=== PATIENT | female | born 1955 | race Caucasian/White ===

== ENCOUNTER 2017-08-08 19:25 | Emergency (ER) | payer BC ==
[2017-08-08 19:46] VITALS: BP 137/74
--- NOTE | 2017-08-08 20:01 | UC ---
Rolly Herbert Gabriel, scribed for Zeny Simpson MD on 08/08/17 at 1959 . Throat Pain/Nasal Gerardo HPI - HPI Summary HPI Summary: This patient is a 62 year old F presenting to [facility] [place] with a chief complaint of possible sinus infection since 2 months ago. The patient rates the pain 7/10 in severity. Pressure in max sinus R>L. Patient reports nasal congestion (unable to blow nose), eye pain, post nasal drip, sinus pressure, chills (2 weeks), nausea, body aches, and weakness. Patient denies dental pain and vomiting. Pt states feel fatgiue. 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 + sinus infection 1 year ago Medications reviewed during this visit. - History of Current Complaint Chief Complaint: UCRespiratory Stated Complaint: SINUS COMPLAINT Time Seen by Provider: 08/08/17 19:47 Hx Obtained From: Patient Hx Last Menstrual Period: post menopausal Onset/Duration: Lasting Weeks - 8, Still Present Severity: Moderate Pain Intensity: 7 Pain Scale Used: 0-10 Numeric Associated Signs & Symptoms: Positive: Negative - dental pain and vomiting, Other - nasal congestion (unable to blow nose), eye pain, post nasal drip, sinus pressure, chills (2 weeks), nausea, body aches, and weakness. 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, wisdom teeth - Family History Known Family History: Positive: Hypertension - Social History Occupation: Employed Part-time Alcohol Use: Occasionally Alcohol Amount: every 2-3 weeks Substance Use Type: None Smoking Status (MU): Never Smoked Tobacco - Immunization History Most Recent Influenza Vaccination: 2014 Most Recent Tetanus Shot: 2015 Most Recent Pneumonia Vaccination: never Review of Systems Constitutional: Chills Eyes: Other - eye pain ENT: Sinus Congestion, Sinus Pain/Tenderness - pressure, Other - post nasal drip Gastrointestinal: Nausea Neurological: Weakness All Other Systems Reviewed And Are Negative: Yes Physical Exam Triage Information Reviewed: Yes Appearance: Well-Appearing, No Pain Distress, Well-Nourished Vital Signs: Initial Vital Signs Temp 98.8 F 08/08/17 19:40 Pulse 74 08/08/17 19:40 Resp 18 08/08/17 19:40 BP 137/74 08/08/17 19:40 Pulse Ox 99 08/08/17 19:40 Vital Signs Reviewed: Yes Eye Exam: Normal Eyes: Positive: Conjunctiva Clear ENT: Positive: Pharynx normal, Nasal congestion, Sinus tenderness - max R>L, Other - mild PND no erythema, no exudate Dental Exam: Normal Neck exam: Normal Neck: Positive: Supple, Nontender, No Lymphadenopathy Respiratory Exam: Normal Respiratory: Positive: Chest non-tender, Lungs clear, Normal breath sounds, No respiratory distress, No accessory muscle use Cardiovascular Exam: Normal Cardiovascular: Positive: RRR, No Murmur, Pulses Normal Abdominal Exam: Normal Abdomen Description: Positive: Nontender, No Organomegaly, Soft Bowel Sounds: Positive: Present Musculoskeletal Exam: Normal Musculoskeletal: Positive: Strength Intact Neurological Exam: Normal Neurological: Positive: Alert Psychological Exam: Normal Skin Exam: Normal Throat Pain/Nasal Course/Dx - Course Assessment/Plan: This patient is a 62 year old F presenting to [facility] with a chief complaint of possible sinus infection since 2 months ago. Pt with nasal congestion and bogginess + ttp max sinus. Pt with neg flu. will rx abx. Rx diflucan for yeast infection associated with abx - Differential Dx/Diagnosis Provider Diagnoses: sinusitis Discharge - Discharge Plan Condition: Stable Disposition: HOME Prescriptions: Amoxicillin/Clavulanate TAB* [Augmentin TAB 875*] 875 mg PO BID #14 tab Fluconazole [Diflucan 150 MG (NF)] 150 mg PO ONCE PRN #1 tab PRN Reason: yeast infection Patient Education Materials: Sinusitis (ED) Referrals: No Primary Care Phys,NOPCP [Primary Care Provider] - Additional Instructions: - Stay well hydrated. Drink plenty of non-alcoholic, non-caffinated beverages. - okay to take over the counter decongestant - After you have been on antibiotics for 2 days - change your toothbrush and your pillowcase. These infections are spread by secretions - do NOT share eating or drinking utensils - clean items you share with other people such as cell phones, computer mouse, TV remote, computer tablets, etc - Alternate ibuprofen (Advil, Motrin) 600mg and Tylenol every 3 hours for pain or fever. Take with food. Do NOT take for more than 4-5 days. - you have been given a prescription for a yeast infection - okay to take as needed following antibiotics The documentation as recorded by the Rolly thurston Gabriel accurately reflects the service I personally performed and the decisions made by me, Zeny Simpson MD.
[2017-08-08] MEDS ORDERED: Amoxicillin/Clavulanate TAB* 875 MG PO ONE (20:43)
== END 2017-08-08 20:58 | disposition home or self-care (01) ==
LOC: UCEAST 19:25
DX: J32.9 Chronic sinusitis, unspecified (principal)
CPT/HCPCS: 87502; 99212; A9270-GY; G0463

== ENCOUNTER 2018-01-18 20:30 | Emergency (ER) | payer BC ==
[2018-01-18 20:43] VITALS: BP 148/82
--- NOTE | 2018-01-18 20:54 | UC ---
Complaint Female HPI - HPI Summary HPI Summary: 62 year old female with UTI concerns. Increased freq of urination for 3 days. no n/,v/d . no fever. - History Of Current Complaint Chief Complaint: UCGU Stated Complaint: UTI Time Seen by Provider: 01/18/18 20:52 Hx Obtained From: Patient Hx Last Menstrual Period: post menopausal Onset/Duration: Gradual Onset Timing: Constant Pain Intensity: 0 Related Hx: Similar Episode/Dx as: - Allergies/Home Medications Allergies/Adverse Reactions: Allergies Allergy/AdvReac Type Severity Reaction Status Date / Time aspirin Allergy GI Upset Verified 01/18/18 20:43 metronidazole [From Flagyl] Allergy Hives Verified 01/18/18 20:43 HAYFEVER Allergy Severe CONGESTION, Uncoded 08/08/17 19:38 SNEEZING PMH/Surg Hx/FS Hx/Imm Hx Previously Healthy: Yes - Surgical History Surgical History: Yes Surgery Procedure, Year, and Place: CHOLECYSTECTOMY, PITUITARY TUMOR REMOVED, THYROID SURGERY, D&C, ERCP, 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, wisdom teeth - Family History Known Family History: Positive: Hypertension - Social History Occupation: Employed Full-time Alcohol Use: Occasionally Alcohol Amount: every 2-3 weeks Substance Use Type: None Smoking Status (MU): Never Smoked Tobacco - Immunization History Most Recent Influenza Vaccination: 2014 Most Recent Tetanus Shot: 2014 Most Recent Pneumonia Vaccination: never Review of Systems Genitourinary: Frequency Is Patient Immunocompromised?: No All Other Systems Reviewed And Are Negative: Yes Physical Exam Triage Information Reviewed: Yes Appearance: Well-Appearing, No Pain Distress, Well-Nourished Vital Signs: Initial Vital Signs Temp 97.2 F 01/18/18 20:40 Pulse 90 01/18/18 20:40 Resp 18 01/18/18 20:40 BP 148/82 01/18/18 20:40 Pulse Ox 100 01/18/18 20:40 Eye Exam: Normal ENT Exam: Normal Dental Exam: Normal Neck exam: Normal Neck: Positive: 1 Respiratory Exam: Normal Cardiovascular Exam: Normal Abdominal Exam: Normal Abdomen Description: Negative: CVA Tenderness (R), CVA Tenderness (L) Musculoskeletal Exam: Normal Neurological Exam: Normal Psychological Exam: Normal Skin Exam: Normal Complaint Female Dx - Course Course Of Treatment: ELEVATED BP -- follow up with PCP - Differential Dx/Diagnosis Differential Diagnosis/HQI/PQRI: Ureteral Stone, Urinary Tract Infection Provider Diagnoses: UTI Discharge - Sign-Out/Discharge Documenting (check all that apply): Discharge/Admit/Transfer - Discharge Plan Condition: Good Disposition: HOME Prescriptions: Sulfamethox/Trimethoprim DS* [Bactrim DS 800/160 TAB*] 1 tab PO BID #10 tab Patient Education Materials: Urinary Tract Infection in Women (ED) Referrals: No Primary Care Phys,NOPCP [Primary Care Provider] - 7 Days - Billing Disposition and Condition Condition: GOOD Disposition: HOME
[2018-01-18] MEDS ORDERED: Sulfamethox/Trimethoprim DS 800/160* TAB PO ONE (21:16)
--- NOTE | 2018-01-21 15:44 | UC ---
- Progress Note Progress Note: 01/21/2018 Urine culture positive for E.coli. Pt Rx Bactrim PO. No change Lubna Tillman PA-C Discharge - Sign-Out/Discharge Documenting (check all that apply): Discharge/Admit/Transfer - D/C home - Discharge Plan Condition: Good Disposition: HOME Prescriptions: Sulfamethox/Trimethoprim DS* [Bactrim DS 800/160 TAB*] 1 tab PO BID #10 tab Patient Education Materials: Urinary Tract Infection in Women (ED) Referrals: No Primary Care Phys,NOPCP [Primary Care Provider] - 7 Days - Billing Disposition and Condition Condition: GOOD Disposition: HOME
== END 2018-01-18 21:30 | disposition home or self-care (01) ==
LOC: UCEAST 20:30
DX: N39.0 Urinary tract infection, site not specified (principal); B96.20 Unspecified Escherichia coli [E. coli] as the cause of diseases classified elsewhere; R03.0 Elevated blood-pressure reading, without diagnosis of hypertension; N95.9 Unspecified menopausal and perimenopausal disorder; Z88.6 Allergy status to analgesic agent; Z88.3 Allergy status to other anti-infective agents
CPT/HCPCS: 81003; 87077; 87086; 87186; 99212; A9270-GY; G0463

== ENCOUNTER 2018-10-29 13:34 | Emergency (ER) | payer BC, MEDICARE ==
[2018-10-29 13:47] VITALS: BP 164/90
[2018-10-29 14:08] LABS: Influenza A Molecular NEGATIVE (Negative); Influenza B Molecular NEGATIVE (Negative)
--- NOTE | 2018-10-29 14:20 | UC ---
Respiratory Complaint HPI - HPI Summary HPI Summary: 63 year old female with multiple PMH presents with sinus congestion, non- productive cough, fatigue. Concerned about flu. + flu shot. no fever. Also c/o R arm pain since helping mother move 09/28, posterior should pain and at top of shoulder, ? weakness due to pain. Denies prior injury. Poor historian overall. - History of Current Complaint Chief Complaint: UCGeneralIllness Stated Complaint: FLU LIKE SYMPTOMS Time Seen by Provider: 10/29/18 13:51 Hx Obtained From: Patient Hx Last Menstrual Period: na ?: No Onset/Duration: Sudden Onset, Lasting Days Severity Initially: Moderate Severity Currently: Moderate Pain Intensity: 4 Pain Scale Used: 0-10 Numeric Character: Cough: Nonproductive Alleviating Factors: OTC Meds Associated Signs And Symptoms: Positive: Chills - Allergies/Home Medications Allergies/Adverse Reactions: Allergies Allergy/AdvReac Type Severity Reaction Status Date / Time aspirin Allergy GI Upset Verified 10/29/18 13:47 metronidazole [From Flagyl] Allergy Hives Verified 10/29/18 13:47 HAYFEVER Allergy Severe CONGESTION, Uncoded 10/29/18 13:47 SNEEZING Home Medications: Home Medications Amoxicillin PO (*) [Amoxicillin 500 MG CAP*] 500 mg PO TID 10/29/18 [History Confirmed 10/29/18] PMH/Surg Hx/FS Hx/Imm Hx - Surgical History Surgical History: Yes Surgery Procedure, Year, and Place: CHOLECYSTECTOMY, PITUITARY TUMOR REMOVED, THYROID SURGERY, D&C, ERCP, 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 TESTER SURGERY, wisdom teeth - Family History Known Family History: Positive: Hypertension - Social History Alcohol Use: Occasionally Alcohol Amount: every 2-3 weeks Substance Use Type: None Smoking Status (MU): Never Smoked Tobacco - Immunization History Most Recent Influenza Vaccination: 2014 Most Recent Tetanus Shot: 2014 Most Recent Pneumonia Vaccination: never Review of Systems All Other Systems Reviewed And Are Negative: Yes Constitutional: Positive: Chills, Fatigue ENT: Positive: Nasal Discharge, Sinus Congestion, Sinus Pain/Tenderness Respiratory: Positive: Cough Motor: Positive: Decreased ROM - right shoudler due to pain Is Patient Immunocompromised?: No Physical Exam Triage Information Reviewed: Yes Appearance: Well-Appearing, No Pain Distress, Well-Nourished Vital Signs: Initial Vital Signs Temp 98.2 F 10/29/18 13:42 Pulse 79 10/29/18 13:42 Resp 18 10/29/18 13:42 BP 164/90 10/29/18 13:42 Pulse Ox 99 10/29/18 13:42 Vital Signs Reviewed: Yes Eyes: Positive: Conjunctiva Clear ENT: Positive: Pharynx normal, Nasal congestion, TMs normal, Sinus tenderness - mild frontal, Uvula midline. Negative: Pharyngeal erythema, Nasal drainage, TM bulging, TM dull, TM red, Tonsillar swelling, Tonsillar exudate Neck: Positive: Supple, Nontender, No Lymphadenopathy. Negative: Nuchal Rigidity Respiratory: Positive: Chest non-tender, Lungs clear, Normal breath sounds, No respiratory distress, No accessory muscle use. Negative: Respiratory distress, Crackles, Rhonchi, Stridor, Wheezing Cardiovascular: Positive: RRR Musculoskeletal: Positive: Strength Intact, ROM Intact, No Edema, Other: - negative RC testing, neg speeds ttp over biceps tendon, posterior scapula. Neurological Exam: Normal UC Diagnostic Evaluation - Laboratory O2 Sat by Pulse Oximetry: 99 Respiratory Course/Dx - Course Course Of Treatment: likely viral URI, neg rapid flu. - Differential Dx/Diagnosis Provider Diagnosis: URI (upper respiratory infection) Discharge - Sign-Out/Discharge Documenting (check all that apply): Patient Departure All imaging exams completed and their final reports reviewed: No Studies - Discharge Plan Condition: Good Disposition: HOME Patient Education Materials: Upper Respiratory Infection (ED) Referrals: Luis Lott MD [Medical Doctor] - (Follow up within 2-3 weeks if no improvement in your shoulder ) No Primary Care Phys,NOPCP [Primary Care Provider] - Additional Instructions: - Increase fluid intake - Humidifier at night to help with coughing - Good Hygiene, hand washing to prevent spread - Over the counter medications for symptoms - Motrin/ Tylenol as needed for pain, fever - Billing Disposition and Condition Condition: GOOD Disposition: Home
== END 2018-10-29 14:32 | disposition home or self-care (01) ==
LOC: UCEAST 13:34
DX: J06.9 Acute upper respiratory infection, unspecified (principal); M79.601 Pain in right arm; Z88.8 Allergy status to other drugs, medicaments and biological substances; Z91.09 Other allergy status, other than to drugs and biological substances
CPT/HCPCS: 99212; G0463

== ENCOUNTER 2018-11-14 19:15 | Emergency (ER) | payer MEDICARE ==
[2018-11-14 19:27] VITALS: BP 150/90
--- NOTE | 2018-11-14 20:54 | UC ---
Complaint Female HPI - HPI Summary HPI Summary: 63-year-old female presents with 2 day history of dysuria, frequency, and urgency. Associated with some suprapubic pressure. Denies fever, chills, back or flank pain, hematuria, nausea, or vomiting. - History Of Current Complaint Chief Complaint: UCGU Stated Complaint: URINARY COMPLAINT Time Seen by Provider: 11/14/18 20:21 Hx Obtained From: Patient Hx Last Menstrual Period: na Pain Intensity: 6 - Allergies/Home Medications Allergies/Adverse Reactions: Allergies Allergy/AdvReac Type Severity Reaction Status Date / Time aspirin Allergy GI Upset Verified 11/14/18 19:27 metronidazole [From Flagyl] Allergy Hives Verified 11/14/18 19:27 HAYFEVER Allergy Severe CONGESTION, Uncoded 11/14/18 19:27 SNEEZING PMH/Surg Hx/FS Hx/Imm Hx Previously Healthy: Yes GI/ History: Gall Bladder Disease Psychological History: Anxiety - Surgical History Surgical History: Yes Surgery Procedure, Year, and Place: CHOLECYSTECTOMY, PITUITARY TUMOR REMOVED, THYROID SURGERY, D&C, ERCP, 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, 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 teeth - Family History Known Family History: Positive: Hypertension - Social History Occupation: Employed Full-time Lives: Alone Alcohol Use: Occasionally Alcohol Amount: every 2-3 weeks Substance Use Type: None Smoking Status (MU): Never Smoked Tobacco - Immunization History Most Recent Influenza Vaccination: 2014 Most Recent Tetanus Shot: 2014 Most Recent Pneumonia Vaccination: never Review of Systems All Other Systems Reviewed And Are Negative: Yes Constitutional: Negative: Fever, Chills Respiratory: Positive: Negative Cardiovascular: Positive: Negative Gastrointestinal: Negative: Abdominal Pain, Vomiting, Diarrhea, Nausea Genitourinary: Positive: Dysuria, Frequency, Urgency. Negative: Hematuria, Vaginal/Penile Burning, Vaginal/Penile Discharge, Ulceration/Lesion Musculoskeletal: Positive: Negative Neurological: Positive: Negative Is Patient Immunocompromised?: No Physical Exam - Summary Physical Exam Summary: GENERAL APPEARANCE: Well developed, well nourished, alert and cooperative, and appears to be in no acute distress. CARDIAC: Normal S1 and S2. No S3, S4 or murmurs. Rhythm is regular. There is no peripheral edema, cyanosis or pallor. Extremities are warm and well perfused. Capillary refill is less than 2 seconds. Peripheral pulses intact. LUNGS: Clear to auscultation without rales, rhonchi, wheezing or diminished breath sounds. ABDOMEN: Positive bowel sounds. Soft, nondistended, nontender. No guarding or rebound. No masses or hepatosplenomegally. No CVA tenderness. MUSKULOSKELETAL: ROM intact to all extremities. No joint erythema or tenderness. Normal muscular development. Normal gait. SKIN: Skin normal color, texture and turgor with no lesions or eruptions. Triage Information Reviewed: Yes Vital Signs: Initial Vital Signs Temp 98.7 F 11/14/18 19:21 Pulse 90 11/14/18 19:21 Resp 18 11/14/18 19:21 BP 150/90 11/14/18 19:21 Pulse Ox 100 11/14/18 19:21 Vital Signs Reviewed: Yes Complaint Female Dx - Course Course Of Treatment: 63-year-old female presents with 2 day history of dysuria, frequency, and urgency. Associated with some suprapubic pressure. Denies fever , chills, back or flank pain, hematuria, nausea, or vomiting. Afebrile. Hypertensive otherwise vital signs stable. Exam reveals an adult female in no acute distress with soft abdomen, mild suprapubic tenderness, no CVA tenderness , and otherwise unremarkable exam. [id number] urinalysis shows 1+ protein, 3 + blood, and 3+ leukocyte esterase. Urine culture is pending. Will treat for an acute urinary tract infection with Macrobid 100 mg twice a day for 5 days and Pyridium 100 mg 3 times a day 2 days. First dose of these medications were given in the clinic. She is to follow-up with her primary care provider in 3-5 days if symptoms do not improve. Try guidance and warning symptoms were reviewed with the patient. Verbalizes understanding and agrees with plan of care. - Differential Dx/Diagnosis Differential Diagnosis/HQI/PQRI: Renal Colic, Urinary Tract Infection Provider Diagnosis: UTI (urinary tract infection) Discharge - Sign-Out/Discharge Documenting (check all that apply): Patient Departure All imaging exams completed and their final reports reviewed: No Studies - Discharge Plan Condition: Stable Disposition: HOME Prescriptions: Nitrofurantoin Monohyd/M-Cryst [Macrobid 100 mg Capsule] 100 mg PO BID #9 cap Phenazopyridine TAB* [Pyridium 100 mg TAB*] 100 mg PO TID #5 tab Patient Education Materials: Urinary Tract Infection in Women (ED) Referrals: No Primary Care Phys,NOPCP [Primary Care Provider] - Additional Instructions: Your urine test in the clinic today is suggestive of a urinary tract infection. We will start you on an antibiotic to treat for the infection. We will also send a urine culture today to see what bacteria grow out and make sure the antibiotic you were prescribed is appropriate to treat the infection. It will take 48-72 hours to get these results. We will contact you if there is any change in your treatment plan. Start Macrobid 1 tab twice a day for 5 days. We gave you the first dose in the clinic. Take Pyridium 1 tablet every 8 hours for next 2 days to help with the discomfort. We gave you the first dose in the clinic. This medication will turn your urine an orange color. Drink plenty of fluids. To help prevent urinary tract infections: 1) Be sure to wipe from front to back. 2) Urinate immediately after any sexual intercourse. 3) Avoid taking bubble baths. Follow up with your primary care provider in 5-7 days if symptoms persist. Seek immediate medical attention in the emergency room if you develop fever greater than 100.5 F, have severe abdominal pain, persistent vomiting, or any worsening of symptoms. - Billing Disposition and Condition Condition: STABLE Disposition: Home
[2018-11-14] MEDS ORDERED: Nitrofurantoin Macrocrystals* 50 MG CAP PO ONE (21:03)
[2018-11-14] MEDS ORDERED: Phenazopyridine TAB* 100 MG PO ONE (21:03)
== END 2018-11-14 21:29 | disposition home or self-care (01) ==
LOC: UCEAST 19:15
DX: N39.0 Urinary tract infection, site not specified (principal); Z88.8 Allergy status to other drugs, medicaments and biological substances; Z88.1 Allergy status to other antibiotic agents
CPT/HCPCS: 81003; 87086; 99212; A9270-GY; G0463

== ENCOUNTER 2018-12-30 13:03 | Emergency (ER) | payer MEDICARE ==
[2018-12-30 13:48] VITALS: BP 138/87
--- NOTE | 2018-12-30 14:25 | UC ---
Skin Complaint HPI - HPI Summary HPI Summary: small bruise on left forearm--patient states it had been there for 1 week and today she read an article about bat s and is concerned it is a bat bite. She had bats in her house 3-4 years ago but none recently-- - History of Current Complaint Chief Complaint: UCSkin Time Seen by Provider: 12/30/18 13:59 Stated Complaint: SKIN ISSUE Hx Obtained From: Patient Hx Last Menstrual Period: na ?: No Onset/Duration: Sudden Onset, Lasting Weeks - 1, Still Present Timing: Constant Pain Intensity: 0 Pain Scale Used: 0-10 Numeric Location: Discrete Aggravating Factor(s): Nothing Alleviating Factor(s): Nothing Associated Signs & Symptoms: Positive: Bruising - about 1.5 cm diameter - Allergy/Home Medications Allergies/Adverse Reactions: Allergies Allergy/AdvReac Type Severity Reaction Status Date / Time metronidazole [From Flagyl] Allergy Hives Verified 12/30/18 13:48 aspirin AdvReac GI Upset Verified 12/30/18 13:48 HAYFEVER Allergy Severe CONGESTION, Uncoded 12/30/18 13:48 SNEEZING PMH/Surg Hx/FS Hx/Imm Hx Previously Healthy: Yes Psychological History: Anxiety - Surgical History Surgical History: Yes Surgery Procedure, Year, and Place: CHOLECYSTECTOMY, PITUITARY TUMOR REMOVED, THYROID SURGERY, D&C, ERCP, 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, wisdom teeth - Family History Known Family History: Positive: Hypertension - Social History Occupation: Retired Lives: With Family Alcohol Use: Occasionally Alcohol Amount: every 2-3 weeks Substance Use Type: None Smoking Status (MU): Never Smoked Tobacco - Immunization History Most Recent Influenza Vaccination: 2014 Most Recent Tetanus Shot: 2014 Most Recent Pneumonia Vaccination: never Review of Systems All Other Systems Reviewed And Are Negative: Yes Constitutional: Positive: Negative Skin: Positive: Bruising - 1.5 cm diameter on left forearm Eyes: Positive: Negative ENT: Positive: Negative Respiratory: Positive: Negative Cardiovascular: Positive: Negative Gastrointestinal: Positive: Negative Genitourinary: Positive: Negative Motor: Positive: Negative Neurovascular: Positive: Negative Musculoskeletal: Positive: Negative Neurological: Positive: Negative Psychological: Positive: Negative Is Patient Immunocompromised?: No Physical Exam Triage Information Reviewed: Yes Appearance: Well-Appearing, No Pain Distress, Well-Nourished Vital Signs: Initial Vital Signs Temp 98.3 F 12/30/18 13:45 Pulse 74 04/28/19 13:45 Resp 16 12/30/18 13:45 BP 138/87 12/30/18 13:45 Pulse Ox 97 12/30/18 13:45 Vital Signs Reviewed: Yes Eye Exam: Normal Eyes: Positive: Conjunctiva Clear ENT Exam: Normal ENT: Positive: Normal ENT inspection, Hearing grossly normal. Negative: Trismus , Muffled voice, Hoarse voice Dental Exam: Normal Neck exam: Normal Neck: Positive: Supple, Nontender Respiratory Exam: Normal Respiratory: Positive: Chest non-tender, No respiratory distress, No accessory muscle use Cardiovascular Exam: Normal Cardiovascular: Positive: RRR, Pulses Normal, Brisk Capillary Refill Musculoskeletal Exam: Normal Musculoskeletal: Positive: Strength Intact, ROM Intact, No Edema Neurological Exam: Normal Neurological: Positive: Alert, Muscle Tone Normal Psychological Exam: Normal Skin Exam: Other Skin: Positive: Other - 1.5 cm fading bruise on left forearm Course/Dx - Course Course Of Treatment: follow with health department for further information regarding bats in your home-and when to seek treatment - Diagnoses Provider Diagnosis: Bruise, Health education/counseling Discharge - Sign-Out/Discharge Documenting (check all that apply): Patient Departure All imaging exams completed and their final reports reviewed: No Studies - Discharge Plan Condition: Stable Disposition: HOME Patient Education Materials: Rabies (ED), Contusion in Adults (ED) Referrals: [facility] [Outside] - If Needed Additional Instructions: Follow with the Health Department for further information regarding BATS in your home--- - Billing Disposition and Condition Condition: STABLE Disposition: Home - Attestation Statements Provider Attestation: I was available for consult. This patient was seen by the WILMA. The patient was not presented to , seen by or examined by nh -Sophy Salazar MD
== END 2018-12-30 14:38 | disposition home or self-care (01) ==
LOC: UCEAST 13:03
DX: S50.12XA Contusion of left forearm, initial encounter (principal); Z71.89 Other specified counseling; Z88.1 Allergy status to other antibiotic agents; Z88.8 Allergy status to other drugs, medicaments and biological substances; Z91.09 Other allergy status, other than to drugs and biological substances; X58.XXXA Exposure to other specified factors, initial encounter; Y92.9 Unspecified place or not applicable
CPT/HCPCS: 99211; G0463

== ENCOUNTER 2019-05-04 14:43 | Emergency (ER) | payer MEDICARE ==
--- NOTE | 2019-05-04 14:51 | UC ---
Skin Complaint HPI - HPI Summary HPI Summary: 64 y/o female presents to the urgent care c/o being exposed w/ poison susan s/p walking her brother dog on Monday. Pt she has had poison susan in the past and she knows the rash. She has a rash on her R buttocks, RT hip, chin and B/l dorsals side of her arm. She has been applying topical hydrocortisone cream w/ o any improvement. Itchiness is worse at night time. Pt denies fever, MARLEY, dizziness, SOB, cough throat tightening, chest pain, abdominal pain, N/V/d. - History of Current Complaint Time Seen by Provider: 05/04/19 14:50 Stated Complaint: RASH Hx Obtained From: Patient Hx Last Menstrual Period: na ?: No Onset/Duration: Lasting Days - 3 days, Still Present, Worse Since - yesterday w / a lot of ithciness Skin Exposure Onset/Duration: Days Ago - 3 days ago Timing: Constant Onset Severity: Mild Current Severity: Moderate Pain Intensity: 0 Pain Scale Used: 0-10 Numeric Location: Discrete - Rt gluteus, hip, and RT upper thing, chin and B/l has w/ itchy rash Character: Pruritus, Redness - Rt gluteus, hip, and RT upper thing, chin and B/ l has w/ itchy rash Aggravating Factor(s): Touch Alleviating Factor(s): OTC Creams/Salves - hydrocrtisone topical cream Associated Signs & Symptoms: Positive: Rash - on Rt gluteus, hip, and RT upper thing, chin and B/l has w/ itchy rash. Negative: Nausea, Fever, Chills, Cough, Wheezing, Chest Pain, Hoarseness, Throat Tightening, Drainage, Tenderness Related History: Possible Reaction to: Environmental Exposure - possible poison susan - Allergy/Home Medications Allergies/Adverse Reactions: Allergies Allergy/AdvReac Type Severity Reaction Status Date / Time metronidazole [From Flagyl] Allergy Hives Verified 05/04/19 14:56 aspirin AdvReac GI Upset Verified 05/04/19 14:56 HAYFEVER Allergy Severe CONGESTION, Uncoded 05/04/19 14:56 SNEEZING PMH/Surg Hx/FS Hx/Imm Hx Previously Healthy: Yes Psychological History: Depression - Surgical History Surgical History: Yes Surgery Procedure, Year, and Place: CHOLECYSTECTOMY, PITUITARY TUMOR REMOVED, THYROID SURGERY, D&C, ERCP, [employer] SURGERY, wisdom teeth - Family History Known Family History: Positive: Cardiac Disease, Hypertension - Social History Occupation: Retired Lives: With Family Alcohol Use: Occasionally Alcohol Amount: every 2-3 weeks Substance Use Type: None Smoking Status (MU): Never Smoked Tobacco - Immunization History Most Recent Influenza Vaccination: 2014 Most Recent Tetanus Shot: 2014 Most Recent Pneumonia Vaccination: never Review of Systems All Other Systems Reviewed And Are Negative: Yes Constitutional: Positive: Negative Skin: Positive: Rash - on Rt gluteus, hip, and RT upper thing, chin and B/l has w/ itchy rash Eyes: Positive: Negative ENT: Positive: Negative Respiratory: Positive: Negative Cardiovascular: Positive: Negative Gastrointestinal: Positive: Negative Genitourinary: Positive: Negative Motor: Positive: Negative Neurovascular: Positive: Negative Musculoskeletal: Positive: Negative Neurological: Positive: Negative Psychological: Positive: Negative Is Patient Immunocompromised?: No Physical Exam - Summary Physical Exam Summary: Vital Signs Reviewed: Yes General: well appearing, well nourished obese female in no acute apparent pain distress, sitting comfortably on examining table Eye Exam: Normal Eyes: Positive: Conjunctiva Clear - PERRLA< EOMI, fundi grossly normal ENT: Positive: Normal ENT inspection, Hearing grossly normal, Pharynx normal, TMs normal Neck: Positive: Supple, Nontender, No Lymphadenopathy Respiratory: Positive: Chest non-tender, Lungs clear, Normal breath sounds, No respiratory distress Cardiovascular: Positive: RRR, No Murmur, Pulses Normal, Brisk Capillary Refill Abdomen Description: Positive: Nontender, No Organomegaly, Soft. Negative: CVA Tenderness (R), CVA Tenderness (L) Bowel Sounds: Positive: Present Musculoskeletal: Positive: Strength Intact, ROM Intact, No Edema Neurological: Positive: Alert, Muscle Tone Normal Psychological Exam: Normal Skin: Positive:B/L hand , chin, RT gluteus, RT hip and posterior RT upper thigh w/ scattered erythematous blisters and vesicles, particularly in linear streaks w/ mild signs of excoriation, no drainage observed, non tender to palpation. Triage Information Reviewed: Yes Course/Dx - Course Course Of Treatment: 64 y/o female presents to the urgent care c/o being exposed w/ poison susan s/p walking her brother dog on Wednesday. Pt she has had poison susan in the past and she knows the rash. She has a rash on her R buttocks, RT hip, chin and B/l dorsals side of her arm. She has been applying topical hydrocortisone cream w/ o any improvement. Itchiness is worse at night time. Pt denies fever, MARLEY, dizziness, SOB, cough throat tightening, chest pain, abdominal pain, N/V/d. Pt w / B/L hand , chin, RT gluteus, RT hip and posterior RT upper thigh w/ scattered erythematous blisters and vesicles, particularly in linear streaks w/ mild signs of excoriation, no drainage observed, non tender to palpation on examination. Pt w/ possible Poison susan dermatitis. PT Rx Prednisone PO taper dose and Triamcinolone topical cream and caldryl lotion for her face to alleviate symptoms. If not improvement or worsening of symptoms to return to the clinic or f/u with PCP or Paradichlorobenzene Tender Dr Alcala for further treatment. D/C instructions explained. PT understood and agreed with plan of care. - Differential Diagnoses - Skin Complaint Differential Diagnoses: Abscess, Cellulitis, Contact Dermatitis, MRSA, Poison Susan, Poison [place] - Diagnoses Provider Diagnosis: Poison susan dermatitis Discharge ED - Sign-Out/Discharge Documenting (check all that apply): Patient Departure - D/c home All imaging exams completed and their final reports reviewed: No Studies - Discharge Plan Condition: Stable Disposition: HOME Prescriptions: Calamine/Pramoxine LOTION* [Caladryl LOTION*] 1 applic .SEE ORDER BID #1 btl predniSONE TAB* [Deltasone 20 MG TAB*] 20 mg PO DAILY #11 tab Triamcinolone 0.1% CREAM (NF) [Kenalog 0.1% Cream (NF)] 1 applic .SEE ORDER BID #1 applic Patient Education Materials: Poison Susan (ED) Referrals: Ismael Flaherty MD [Primary Care Provider] - 3 Days Gissel Alcala [Medical Doctor] - If Needed Additional Instructions: 1-Please Start taking Prednisone PO taper dose as directed to alelviate symptoms 2- Apply triamcinolone topical cream as directed. Avoid exposure to the sun. Aply Caladryl lotion as directed during the day in the facial rash to alleviate itchiness 3-If symptoms do not improve or worsen please f/u with your PCP or Paradichlorobenzene Tender Dr Alcala in 3 days for further evaluation and treatment. 4- If symptoms worsen and you develop SOB or difficulty breathing please go immediately to the Er for further management. - Billing Disposition and Condition Condition: STABLE Disposition: Home
[2019-05-04 14:58] VITALS: BP 135/79
== END 2019-05-04 15:26 | disposition home or self-care (01) ==
LOC: UCEAST 14:43
DX: L23.7 Allergic contact dermatitis due to plants, except food (principal); F32.9 Major depressive disorder, single episode, unspecified
CPT/HCPCS: 99212; G0463

== ENCOUNTER 2019-07-25 16:22 | Emergency (ER) | payer MEDICARE ==
--- NOTE | 2019-07-25 17:22 | UC ---
Shortness of Breath HPI - HPI Summary HPI Summary: 64-year-old woman comes in with chief complaint of shortness of breath. Patient reports that she went to do her close laundry and she smelt a noxious fume and then felt short of breath. The laundry machine had recently been worked on by a repair person. She's not sure if some electric or gas operated laundry machine. She left the area where the laundry machine was. She drove herself here. She does feel like her shortness of breath is improving since she 's been away from the source of the noxious fumes. No complaint of any chest pain. - History of Current Complaint Chief Complaint: UCRespiratory Stated Complaint: TROUBLE BREATHING Time Seen by Provider: 07/25/19 16:26 Hx Last Menstrual Period: post - Allergy/Home Medications Allergies/Adverse Reactions: Allergies Allergy/AdvReac Type Severity Reaction Status Date / Time metronidazole [From Flagyl] Allergy Hives Verified 07/25/19 16:43 aspirin AdvReac GI Upset Verified 07/25/19 16:43 HAYFEVER Allergy Severe CONGESTION, Uncoded 07/25/19 16:43 SNEEZING PMH/Surg Hx/FS Hx/Imm Hx Previously Healthy: Yes Psychological History: Anxiety - Surgical History Surgical History: Yes Surgery Procedure, Year, and Place: CHOLECYSTECTOMY, PITUITARY TUMOR REMOVED, THYROID SURGERY, D&C, ERCP, [place] SURGERY, wisdom teeth - Family History Known Family History: Positive: Cardiac Disease, Hypertension - Social History Alcohol Use: Occasionally Alcohol Amount: every 2-3 weeks Substance Use Type: None Smoking Status (MU): Never Smoked Tobacco - Immunization History Most Recent Influenza Vaccination: 2014 Most Recent Tetanus Shot: 2014 Most Recent Pneumonia Vaccination: never Review of Systems All Other Systems Reviewed And Are Negative: Yes Constitutional: Positive: Other - see hpi Skin: Positive: Negative Eyes: Positive: Negative ENT: Positive: Negative Respiratory: Positive: Other - see hpi Cardiovascular: Positive: Negative Gastrointestinal: Positive: Negative Motor: Positive: Negative Neurovascular: Positive: Negative Musculoskeletal: Positive: Negative Neurological: Positive: Negative Psychological: Positive: Negative Is Patient Immunocompromised?: No Physical Exam Triage Information Reviewed: Yes Appearance: Well-Appearing, No Pain Distress, Well-Nourished Vital Signs: Initial Vital Signs Temp 98.5 F 07/25/19 16:37 Pulse 80 07/25/19 16:37 Resp 20 07/25/19 16:37 BP 173/89 07/25/19 16:37 Pulse Ox 100 07/25/19 16:37 Vital Signs Reviewed: Yes Eye Exam: Normal Eyes: Positive: Conjunctiva Clear ENT: Negative: Muffled voice, Hoarse voice Neck: Positive: Supple Respiratory: Positive: Lungs clear, Normal breath sounds, No respiratory distress Cardiovascular: Positive: RRR Musculoskeletal: Positive: Strength Intact, ROM Intact Neurological: Positive: Alert Psychological: Positive: Age Appropriate Behavior Skin Exam: Normal Diagnostics - EKG Cardiac Rate: NL - at 1631 Cardiac Rhythm: Sinus: Normal - 74bpm Ectopy: None ST Segment: Normal Shortness of Breath Dx - Course Course Of Treatment: I discussed the EKG with the patient. Patient improved since she's been away from the source. No difficulty breathing in clinic. Patient to avoid the source of the noxious fumes and get her laundry machine reevaluated by the repair people. Patient's to get reevaluated if worse or any questions or concerns. - Differential Dx/Diagnosis Provider Diagnosis: Shortness of breath Discharge ED - Sign-Out/Discharge Documenting (check all that apply): Patient Departure All imaging exams completed and their final reports reviewed: No Studies - Discharge Plan Condition: Stable Disposition: HOME Patient Education Materials: Shortness of Breath (ED) Referrals: Ismael Flaherty MD [Primary Care Provider] - Additional Instructions: FOLLOW UP WITH YOUR DOCTOR IF NOT COMPLETELY IMPROVED. GET REEVALUATED SOONER IF NOT IMPROVED OR WORSE; SHORTNESS OF BREATH, CHEST PAIN , YOU FEEL ILL OR ANY QUESTIONS OR CONCERNS. - Billing Disposition and Condition Condition: STABLE Disposition: Home
[2019-07-25 17:46] VITALS: BP 152/82
== END 2019-07-25 17:46 | disposition home or self-care (01) ==
LOC: UCEAST 16:22
DX: R06.02 Shortness of breath (principal); Z88.1 Allergy status to other antibiotic agents; Z88.6 Allergy status to analgesic agent; Z91.09 Other allergy status, other than to drugs and biological substances
CPT/HCPCS: 93005; 99211; G0463

== ENCOUNTER 2019-09-03 17:48 | Emergency (ER) | payer MEDICARE ==
[2019-09-03 18:03] VITALS: BP 151/95
--- NOTE | 2019-09-03 18:25 | UC ---
Throat Pain/Nasal Gerardo HPI - HPI Summary HPI Summary: 64 yo female presents with flu-like symptoms. She tells me that over the last 4 days she has had chest congestion, productive cough with yellow/green phlegm, body aches, and fatigue. Also has some sinus congestion. She has not been taking anything OTC for her symptoms. Tmax 100F. Denies sore throat, SOb, chest pain, n/v - History of Current Complaint Chief Complaint: UCRespiratory Stated Complaint: URI Time Seen by Provider: 09/03/19 18:25 Hx Obtained From: Patient Hx Last Menstrual Period: post Onset/Duration: Gradual Onset Severity: Moderate Pain Intensity: 5 Pain Scale Used: 0-10 Numeric - Allergies/Home Medications Allergies/Adverse Reactions: Allergies Allergy/AdvReac Type Severity Reaction Status Date / Time metronidazole [From Flagyl] Allergy Hives Verified 09/03/19 18:04 aspirin AdvReac GI Upset Verified 09/03/19 18:04 HAYFEVER Allergy Severe CONGESTION, Uncoded 07/25/19 16:43 SNEEZING PMH/Surg Hx/FS Hx/Imm Hx Psychological History: Anxiety - Surgical History Surgical History: Yes Surgery Procedure, Year, and Place: CHOLECYSTECTOMY, PITUITARY TUMOR REMOVED, THYROID SURGERY, D&C, ERCP, [employer] SURGERY, wisdom teeth - Family History Known Family History: Positive: Cardiac Disease, Hypertension - Social History Lives: With Family Alcohol Use: Occasionally Alcohol Amount: every 2-3 weeks Substance Use Type: None Smoking Status (MU): Never Smoked Tobacco - Immunization History Most Recent Influenza Vaccination: 2014 Most Recent Tetanus Shot: 2014 Most Recent Pneumonia Vaccination: never Review of Systems All Other Systems Reviewed And Are Negative: No Constitutional: Positive: Fatigue, Other - Body aches Skin: Positive: Negative Eyes: Positive: Negative ENT: Positive: Nasal Discharge, Sinus Congestion, Sinus Pain/Tenderness Respiratory: Positive: Cough Cardiovascular: Positive: Negative Gastrointestinal: Positive: Negative Neurovascular: Positive: Negative Musculoskeletal: Positive: Negative Neurological: Positive: Negative Psychological: Positive: Negative Physical Exam - Summary Physical Exam Summary: GENERAL: NAD. WDWN. No pain distress. SKIN: No rashes, sores, lesions, or open wounds. HEENT: Head: AT/NC Eyes: EOM intact. Conjunctiva clear without inflammation or discharge. Ears: Hearing grossly normal. TMs intact, no bulging, erythema, or edema. Nose: Nasal mucosa pink and moist. NTTP maxillary and frontal sinus. Throat: Posterior oropharynx without exudates, erythema, or tonsillar enlargement. Uvula midline. NECK: Supple. Nontender. No lymphadenopathy. CHEST: CTAB. No accessory muscle use. Breathing comfortably and in no distress. CV: RRR. Pulses intact. Cap refill <2seconds NEURO: Alert. PSYCH: Age appropriate behavior. Triage Information Reviewed: Yes Vital Signs: Initial Vital Signs Temp 99.9 F 09/03/19 17:58 Pulse 91 09/03/19 17:58 Resp 18 09/03/19 17:58 BP 151/95 09/03/19 17:58 Pulse Ox 98 09/03/19 17:58 Vital Signs Reviewed: Yes Throat Pain/Nasal Course/Dx - Course Course Of Treatment: POC flu positive. Rx for tamiflu - Differential Dx/Diagnosis Provider Diagnosis: Influenza Discharge ED - Sign-Out/Discharge Documenting (check all that apply): Patient Departure All imaging exams completed and their final reports reviewed: No Studies - Discharge Plan Condition: Stable Disposition: HOME Prescriptions: Oseltamivir CAP* [Tamiflu CAP*] 75 mg PO BID #10 cap Patient Education Materials: Influenza (ED) Referrals: Ismael Flaherty MD [Primary Care Provider] - Additional Instructions: If you develop a fever, shortness of breath, chest pain, new or worsening symptoms - please call your PCP or go to the ED immediately. Your blood pressure was high at todays visit. Please see your primary provider within 4 weeks for recheck and re-evaluation. Most people with the flu recover within one to two weeks without treatment. However, serious complications of the flu can occur. Go to the ER immediately if you: -- You feel short of breath or have trouble breathing -- You have pain or pressure in your chest or stomach -- You have signs of being dehydrated, such as dizziness when standing or not passing urine -- You feel confused -- You cannot stop vomiting or you cannot drink enough fluids There are several groups of people who are at increased risk for flu complications. These include women, young children (<5 years of age and especially <2 years of age), people older than 65 years of age, and people with certain diseases such as chronic lung disease (such as asthma), heart disease, diabetes, immunosuppressing conditions (such as HIV infection or transplantation), and some other diseases. Treat symptoms Treating the symptoms of influenza can help you to feel better but will not make the flu go away faster. -- Rest until the flu is fully resolved, especially if the illness has been severe. -- Fluids Drink enough fluids so that you do not become dehydrated. One way to modern and contemporary art curator if you are drinking enough is to look at the color of your urine. Normally, urine should be light yellow to nearly colorless. If you are drinking enough, you should pass urine every three to five hours. -- Acetaminophen (sample brand name: Tylenol) can relieve fever, headache, and muscle aches. Aspirin and medicines that include aspirin (eg, bismuth subsalicylate [sample brand name: Pepto-Bismol]) are not recommended for children under 18 because aspirin can lead to a serious disease called David syndrome. -- Cough medicines are not usually helpful; cough usually resolves without treatment. We do not recommend cough or cold medicine for children under age 6 years. Antiviral treatment Antiviral medicines can be used to treat or prevent influenza. When used as a treatment, the medicine does not eliminate flu symptoms, although it can reduce the severity and duration of symptoms by about one day. Not every person with influenza needs an antiviral medicine, but some people do; the decision is based upon several factors. If you are severely ill and/or have risk factors for developing complications of influenza, you will need an antiviral agent. People who are only mildly ill and have no risk factors for complications usually do not need to be treated with antiviral medication. - Billing Disposition and Condition Condition: STABLE Disposition: Home
[2019-09-03 18:53] LABS: Influenza B Molecular POSITIVE (Negative)
[2019-09-03] MEDS ORDERED: Oseltamivir CAP* 75 MG CAP PO ONE (18:58)
== END 2019-09-03 19:10 | disposition home or self-care (01) ==
LOC: UCEAST 17:48
DX: J11.1 Influenza due to unidentified influenza virus with other respiratory manifestations (principal); Z88.1 Allergy status to other antibiotic agents; Z88.6 Allergy status to analgesic agent; Z91.09 Other allergy status, other than to drugs and biological substances
CPT/HCPCS: 99212; G0463